=== PATIENT | male | born 1960 | race Caucasian/White ===

== ENCOUNTER 2016-11-14 07:22 | Emergency (ER) | payer OTHER ==
[2016-11-14 07:30] VITALS: RESP 18
[2016-11-14] MEDS ORDERED: KETOROLAC 30 MG/1 ML SDV IVP ONE (07:55)
[2016-11-14] MEDS ORDERED: HYDROmorphONE/DILAUDID 1 MG/ML SYR IVP ONE (08:06)
--- NOTE | 2016-11-14 08:10 | EDPHY ---
H & P Stated Complaint: lower back pain starting Tuesday Time Seen by Provider: 11/14/16 07:33 HPI/ROS: CHIEF COMPLAINT: Back pain HISTORY OF PRESENT ILLNESS: This is a generally healthy 56-year-old male who presents with 3 days of left lower back pain. This began after twisting and bending while getting out of his car. It has progressively worsened in severity. He has been taking Advil 600 mg twice daily with his last dose being last evening. The pain does not radiate into his legs. He has not had weakness , numbness, or bowel or bladder problems. He has had a previous herniated disc that was treated with injections and time. No recent fever. No urinary symptoms. REVIEW OF SYSTEMS: A ten point review of systems was performed and is negative with the exception of the items mentioned in the HPI. Source: Patient Exam Limitations: No limitations - Personal History Current Tetanus/Diphtheria Vaccine: Unsure Current Tetanus Diphtheria and Acellular Pertussis (TDAP): Unsure - Medical/Surgical History Hx Asthma: No Hx Chronic Respiratory Disease: No Hx Diabetes: No Hx Cardiac Disease: No Hx Renal Disease: No Hx Cirrhosis: No Hx Alcoholism: No Hx HIV/AIDS: No Hx Splenectomy or Spleen Trauma: No Other PMH: PSH: denies. PMH: bulging disc, kidney stone - Social History Smoking Status: Current some day smoker (Smokes 2 cigars daily.) Alcohol Use: Occasionally Drug Use: None Additional Social History: [facility]. - Physical Exam Exam: General Appearance: Alert. Vital signs reviewed. Heart rate 102, blood pressure 130/104 at triage. Eyes: Pupils equal and round, no conjunctival injection, no discharge. Anicteric. ENT, Mouth: Mucous membranes are moist, no oropharyngeal erythema or edema. Neck: No lymphadenopathy, supple. Respiratory: Lungs are clear to auscultation; no wheezes, rales, or rhonchi. Cardiovascular: Regular rate and rhythm; no murmur, rub, or gallop. Gastrointestinal: Abdomen is soft and nontender, no masses or organomegaly, bowel sounds normal. Skin: Warm and dry, no rashes on exposed skin, normal color. Back: Nontender to palpation over the thoracolumbar spine. No CVAT. Extremities: No lower extremity edema, no calf tenderness or swelling. Neurological: Alert and oriented. Moving all four extremities easily and equally. Strength is 5 over 5 bilaterally with testing of all major motor groups both lower extremities. Sensation is intact to light touch and sharp touch over both lower extremities. Deep tendon reflexes are 2+ in the ankles and knees bilaterally. Positive straight leg raise on the right. Psychiatric: Normal affect. Constitutional: Initial Vital Signs Temperature (C) 36.6 C 11/14/16 07:26 Heart Rate 102 H 11/14/16 07:26 Respiratory Rate 18 11/14/16 07:26 Blood Pressure 130/104 H 11/14/16 07:26 O2 Sat (%) 96 11/14/16 07:26 O2 Delivery Mode Room Air Allergies/Adverse Reactions: cephalexin monohydrate [From Keflex] Allergy (Intermediate, Verified 11/14/16 07 :26) TONGUE SWELLING penicillin V potassium [From Pen-Vee K] Allergy (Intermediate, Verified 07:26) TONGUE SWELLING Home Medications: Medication Instructions Recorded Ambien 11/14/16 CYCLOBENZAPRINE HCL [Flexeril] 5 mg PO TIDPRN PRN #12 tab 11/14/16 oxyCODONE/APAP 5/325 [Percocet 1 - 2 tab PO Q4H PRN #20 tab 11/14/16 5/325 (RX)] Medical Decision Making ED Course/Re-evaluation: 56-year-old male with 3 days of low back pain. No radicular symptoms. Normal neurologic exam. He is interested in pain relief at this point in time. He is scheduled to go on a fishing trip in [facility] next week and is concerned about being able to take this trip safely. He is being given IV Toradol 15 mg and IV Dilaudid 0.5 mg. He had significant, but not complete, resolution of pain with above medications. He feels well enough to return home and continue with symptomatic treatment-- NSAIDs, pain medicine for break through pain, and muscle relaxant if needed. He will follow up with physiatry for consideration of injection. Danger signs reviewed. Differential Diagnosis: Back pain including but not limited to muscular pain, herniated disc, spine fracture, intra-abdominal causes and urinary tract infection. - Data Points Medications Given: Discontinued Medications Hydromorphone HCl (Dilaudid) 0.5 mg IVP EDNOW ONE Stop: 11/14/16 08:07 Last Admin: 11/14/16 08:25 Dose: 0.5 mg Ketorolac Tromethamine (Toradol) 15 mg IVP EDNOW ONE Stop: 11/14/16 07:56 Last Admin: 11/14/16 08:25 Dose: 15 mg Departure - Departure Disposition: Home, Routine, Self-Care Clinical Impression: Low back strain Qualifiers: Encounter type: initial encounter Qualified Code(s): S39.012A - Strain of muscle, fascia and tendon of lower back, initial encounter Condition: Good Instructions: Low Back Strain (ED), Lower Back Exercises (ED) Additional Instructions: Take ibuprofen (Advil or any brand) 400-600 mg every six hours. This will work on inflammation and on pain. Use the Flexeril for muscle relaxation if needed. Take the percocet for pain if needed. Each percocet contains 325 mg of tylenol. Do not take additional tylenol unless you are keeping track of your overall dosage--do not take more than 3000 mg of tylenol in a 24 hour time period. You cannot take take flexeril or Percocet with alcohol. You cannot drive when taking these medications. Follow up with Dr. Vieira or at [facility] (or facility of your choosing)--call tomorrow to schedule an appointment. Referrals: Jose Maddox MD [Primary Care Provider] - As per Instructions [facility] [Outside] - As per Instructions Anusha Vieira MD [Medical Doctor] - As per Instructions Stand Alone Forms: Narcotic Guidelines Prescriptions: CYCLOBENZAPRINE HCL [Flexeril] 5 mg PO TIDPRN PRN #12 tab PRN Reason: muscle spasm oxyCODONE/APAP 5/325 [Percocet 5/325 (RX)] 1 - 2 tab PO Q4H PRN #20 tab PRN Reason: Pain, Severe
[2016-11-14 09:15] VITALS: BP 133/84; PULSE 76; TEMP 97.7; O2SAT 95
== END 2016-11-14 09:31 | disposition home or self-care (01) ==
DX: S39.012A Strain of muscle, fascia and tendon of lower back, initial encounter (principal); F17.200 Nicotine dependence, unspecified, uncomplicated; X58.XXXA Exposure to other specified factors, initial encounter
CPT/HCPCS: 96374; J1170; J1885

== ENCOUNTER 2018-10-25 19:19 | Emergency (ER) | payer OTHER ==
--- NOTE | 2018-10-25 20:04 | EDPHY ---
H & P Stated Complaint: pt has a thrombosed hemorrhoid Time Seen by Provider: 10/25/18 20:03 HPI/ROS: HPI: This is a 58-year-old male who presents with Chief Complaint: pt has a thrombosed hemorrhoid Location: rectal Quality: Hemorrhoid Duration: Today Signs and Symptoms: no fever, no nausea, no vomiting, no hematemesis, no blood in stool, no abdominal bloating, no diarrhea, no back pain, no urinary symptoms , no testicular/groin pain, no indigestion, no chest pain, no shortness of breath Timing: Acute Severity: 03/31 Context: Patient reports that this afternoon he started to experience sudden onset of rectal discomfort with bulge in the area. He reports that he believes that he has a thrombosed external hemorrhoid that is enlarging in size over the last several hours. He reports that he is unable to sit directly onto his buttocks. Reports colon cancer runs in his family and his last colonoscopy was last year. Modifying Factors: None Comment: ROS: A comprehensive 10 system review of systems is otherwise negative aside from elements mentioned in the history of present illness. MEDICAL/SURGICAL/SOCIAL HISTORY: PSH: denies PMH: bulging disc, kidney stone, thrombosed hemorrhoid Social history: Current some day smoker. Family history noncontributory. CONSTITUTIONAL: Nontoxic-appearing middle-aged white male, awake and alert, no obvious distress HEENT: Atraumatic and normocephalic, PERRL, EOMI. Nares patent; no rhinorrhea; no nasal mucosal edema. Tympanic membranes clear. Oropharynx clear, no exudate and moist pink mucosa. Airway patent. No lymphadenopathy. No meningismus. Cardiovascular: Normal S1/S2, regular rate, regular rhythm, without murmur rub or gallop. PULMONARY/CHEST: Symmetrical and nontender. Clear to auscultation bilaterally. Good air movement. No accessory muscle usage. ABDOMEN: Soft, nondistended, nontender, no rebound, no guarding, no peritoneal signs, no masses or organomegaly. No CVAT. RECTAL: Large thrombosed 4 in hemorrhoid at the 3 o'clock position; extremely tender to palpation EXTREMITIES: 2/2 pulses, strength 5/5, no deformities, no clubbing, no cyanosis or edema. NEUROLOGICAL: no focal neuro deficits. GCS 15. SKIN: Warm and dry, no erythema. no rash. Good capillary refill. Source: Patient Exam Limitations: No limitations - Personal History Current Tetanus/Diphtheria Vaccine: Unsure Current Tetanus Diphtheria and Acellular Pertussis (TDAP): Unsure - Medical/Surgical History Hx Asthma: No Hx Chronic Respiratory Disease: No Hx Diabetes: No Hx Cardiac Disease: No Hx Renal Disease: No Hx Cirrhosis: No Hx Alcoholism: No Hx HIV/AIDS: No Hx Splenectomy or Spleen Trauma: No Other PMH: PSH: denies. PMH: bulging disc, kidney stone, thrombosed hemorrhoid - Social History Smoking Status: Current some day smoker Constitutional: Initial Vital Signs Temperature (C) 37.1 C 10/25/18 19:24 Heart Rate 81 10/25/18 19:24 Respiratory Rate 16 10/25/18 19:24 Blood Pressure 155/95 H 10/25/18 19:24 O2 Sat (%) 95 10/25/18 19:24 O2 Delivery Mode Room Air Allergies/Adverse Reactions: cephalexin monohydrate [From Keflex] Allergy (Intermediate, Verified 10/25/18 19 :28) TONGUE SWELLING penicillin V potassium [From Pen-Vee K] Allergy (Intermediate, Verified 19:28) TONGUE SWELLING Home Medications: Medication Instructions Recorded Amadeo 11/14/16 Medical Decision Making ED Course/Re-evaluation: Vital signs reviewed and stable upon arrival. Let topical applied, IM Toradol 30 mg given. After speaking with attending, decision made to consult General surgery, Dr. Aggarwal for further intervention at 2014. Patient is extremely tender with a large thrombosed hemorrhoid that will require excision. The patient cannot tolerate the discomfort and discharge home with outpatient follow-up. 2143: Appreciate Dr. Aggarwal consult. Patient will be discharged home with outpatient follow-up with Dr. Aggarwal. Given a prepack of Percocet. This patient was seen under the supervision of my secondary supervising physician. I evaluated care for this patient with attending. Discussed this patient with Dr. Barrow who did not see the patient. Differential Diagnosis: Differential diagnosis includes but is not limited to external thrombosed hemorrhoid. - Data Points Medications Given: Discontinued Medications Ketorolac Tromethamine (Toradol) 15 mg IM EDNOW ONE Stop: 10/25/18 20:55 Last Admin: 10/25/18 20:57 Dose: 15 mg Ketorolac Tromethamine (Toradol) 15 mg IM EDNOW ONE Stop: 10/25/18 21:41 Last Admin: 10/25/18 21:59 Dose: 15 mg Oxycodone/Acetaminophen (Percocet 5/325mg Prepack#4) 1 btl TAKEHOME EDNOW ONE Stop: 10/25/18 21:41 Last Admin: 10/25/18 21:59 Dose: 1 btl Tetracaine/Epinephrine/Lidocaine (Let Gel Topical) 1 ea TP EDNOW ONE Stop: 10/25/18 20:11 Last Admin: 10/25/18 20:14 Dose: 1 ea Departure - Departure Disposition: Home, Routine, Self-Care Clinical Impression: Thrombosed external hemorrhoid Condition: Good Instructions: Sitz Bath (DC), Thrombosed Hemorrhoid (ED) Additional Instructions: Please follow recommendations per General surgery. Take Tylenol 650 mg every 4 hours and/or Ibuprofen 600 mg every 8 hours with food as needed for pain. Use Percocet every 6 hours as needed for severe/break through pain. Do not use Tylenol and Percocet concomitantly. Take [id number] Colace twice daily or senna twice daily as needed to prevent constipation while taking narcotics. Follow-up with General surgery as directed. Referrals: Jose Maddox MD [Primary Care Provider] - As per Instructions Roderick Aggarwal MD [Medical Doctor] - As per Instructions
[2018-10-25] MEDS ORDERED: LET GEL TOPICAL 1 EA SYR TP ONE ×2 (20:10→20:11)
[2018-10-25] MEDS ORDERED: KETOROLAC 30 MG/1 ML SDV IM ONE ×2 (20:54→21:40)
[2018-10-25] MEDS ORDERED: OXYCODONE/APAP 5/325MG PREPACK#4 BTL TAKEHOME ONE (21:40)
--- NOTE | 2018-10-25 22:00 | PDCONSULT ---
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 He was seen in the ED by Naa Villa PA-C and surgical consult was requested. He reports having a similar occurrence in 2013 and had and incision and drainage in the FED (though I am unable to find a record of it in the [facility] records). He denies fever, chills, anorectal trauma. He has been mildly constipated. 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 conservative management with warm tub baths, NSAIDS and small doses of narcotics while the thrombosis resolves I recommended conservative management as it carries less risk and will heal just as quickly as surgical management. FU my office 2 weeks for follow and repeat exam 30 mg Ketorolac given in the ED, Start Advil in the morning, Percocet as needed , Senokot s BID while taking Percocet and until bowel movements remain soft. 40 minute consultation, most of that time spent discussing disease management. Jim Aggarwal MD, FACS
[2018-10-25 23:14] VITALS: BP 137/86
== END 2018-10-25 22:17 | disposition home or self-care (01) ==
DX: K64.5 Perianal venous thrombosis (principal)
CPT/HCPCS: J1885